=== PATIENT | female | born 1940 | race Caucasian/White ===

== ENCOUNTER 2018-05-25 13:46 | Outpatient (CLI) | payer MEDICARE, BC ==
--- NOTE | 2018-05-26 07:34 | RAD ---
RIGHT KNEE THREE VIEWS: INDICATIONS: History of prepatellar bursitis. COMPARISON: None. FINDINGS: There is moderate osteoarthrosis of the right knee. There are superficial vascular calcifications ov erlying the posterolateral aspect of the right knee. Enthesopathic change is seen off the patella. No joint capsular distention is evident. IMPRESSION: Osteoarthrosis of the right knee. No acute fracture is demonstrated. No large prepatellar soft tiss ue prominence seen. POS: [facility]
== END 2018-05-25 13:47 | disposition home or self-care (01) ==
LOC: BURRAD 13:46
PROVIDERS: ATTEND Nurse Practitioner
DX: M70.41 Prepatellar bursitis, right knee (principal); M17.11 Unilateral primary osteoarthritis, right knee

== ENCOUNTER 2023-03-18 01:33 | Emergency (ER) | payer MEDICARE, OTHER ==
[2023-03-18] MEDS ORDERED: Acetaminophen 500 MG TAB ONE (01:59)
[2023-03-18 03:42] LABS: #Basophils 0.1 thou/uL (0.0-0.2); #Eosinphils 0.1 thou/uL (0.0-0.7); #Lymphocytes 1.2 thou/uL (1.20-3.40); #Monocytes 0.6 thou/uL (0.11-0.59); #Neutrophils 9.9 thou/uL (1.40-6.50); %Basophils 0.7 % (0.0-1.0); %Lymphocytes 9.9 % (21.0-51.0); %Monocytes 5.2 % (0.0-10.0); %Neutrophils 83.2 % (42.0-75.0); Hematocrit 43.6 % (36.0-47.0); Hemoglobin 14.4 g/dL (12.0-16.0); Mean Corpuscular HGB CONC 32.9 g/dL (32.0-36.0); Mean Corpuscular Hemoglobin 28.1 pg (27.0-31.0); Mean Corpuscular Volume 85.3 fl (78.0-98.0); Mean Platelet Volume 8.5 fL (7.4-10.4); Platelet Count 239 10x3/uL (130-400); RBC Distribution Width 12.2 % (11.5-14.5); Red Blood Cell (RBC) Count 5.12 mill/uL (4.20-5.40); White Blood Cell (WBC) Count 11.8 10x3/uL (4.8-10.8)
[2023-03-18 04:03] LABS: ALT (SGPT) 19 U/L (8-55); AST (SGOT) 14 U/L (5-34); Albumin 4.2 g/dL (3.4-4.8); Alkaline Phosphatase 92 U/L (40-110); Anion Gap 14 mmol/L (10-20); BUN (Urea Nitrogen) 20 mg/dL (9.8-20.1); Bilirubin, Total 0.8 mg/dL (0.2-1.2); CK (CPK) 93 U/L (29-168); Calc. Creatinine Clearance 0 mL/min (70-130); Calcium 9.3 mg/dL (7.8-10.44); Carbon Dioxide 25 mmol/L (23-31); Chloride 104 mmol/L (98-107); Estimated GFR 51; Globulin 3.6 g/dL (2.4-3.5); Glucose 166 mg/dL (83-110); Potassium 3.7 mmol/L (3.5-5.1); Protein, Total 7.8 g/dL (5.8-8.1); Sodium 139 mmol/L (136-145)
[2023-03-18 04:24] LABS: Bilirubin Negative (Negative); Blood, Urine Trace (Negative); Clarity Cloudy (Clear); Glucose, Urine (Dipstick) Negative (Negative); Ketone, Urine 15 mg/dL (Negative); Leukocyte Large (Negative); Nitrite Positive (Negative); Protein, Urine (Dipstick) Negative (Neg-Trace); Specific Gravity, Urine 1.025 (1.005-1.030); Urobilinogen 0.2 mg/dL (Less than 2); pH, Urine 5.5 (5.0-9.0)
[2023-03-18 04:29] LABS: CAUTI Indications for Culture Pelvic or flank pain; RBC/HPF 0-3 HPF (0-3); Renal Epithelial 0-3 HPF (None Seen); WBC/HPF 21-50 HPF (0-3)
[2023-03-18 04:30] LABS: Bacteria/HPF 3+ HPF (None Seen)
[2023-03-18 04:31] LABS: Urine Culture Reflex Yes Yes
[2023-03-18] MEDS ORDERED: Cephalexin 250 MG CAP ONE (04:35)
== END 2023-03-18 04:48 | disposition home or self-care (01) ==
LOC: BURERS 01:33
DX: S00.33XA Contusion of nose, initial encounter (principal); N39.0 Urinary tract infection, site not specified; W18.30XA Fall on same level, unspecified, initial encounter
CPT/HCPCS: 36415; 70160; 70450; 70486; 72125; 80053; 81001; 82550; 85025; 87077; 87086

== ENCOUNTER 2023-05-05 11:42 | Outpatient (CLI) | payer MEDICARE | END 2023-05-05 11:43 | disposition home or self-care (01) | LOC: BURRAD 11:42 | PROVIDERS: ATTEND Family Medicine | DX: R07.89 Other chest pain (principal) | CPT/HCPCS: 71120 ==

== ENCOUNTER 2025-02-16 03:09 | Emergency (ER) | payer MEDICARE ==
[2025-02-16] MEDS ORDERED: predniSONE 20 MG TAB ONE (04:08)
[2025-02-16] MEDS ORDERED: Azithromycin 250 MG TAB ONE (04:15)
[2025-02-16 04:38] LABS: Anion Gap 16 mmol/L (10-20); BUN (Urea Nitrogen) 16 mg/dL (9.8-20.1); Calc. Creatinine Clearance 0 mL/min (70-130); Calcium 9.3 mg/dL (7.8-10.44); Carbon Dioxide 23 mmol/L (23-31); Chloride 103 mmol/L (98-107); Glucose 152 mg/dL (83-110); Potassium 4.4 mmol/L (3.5-5.1); Sodium 138 mmol/L (136-145)
[2025-02-16 04:41] LABS: Hematocrit 41.7 % (36.0-47.0); Hemoglobin 13.4 g/dL (12.0-16.0); MDiff Complete? YES; Mean Corpuscular Hemoglobin 28.2 pg (27.0-31.0); Mean Corpuscular Volume 87.6 fl (78.0-98.0); Platelet Adequacy Comment Appears Adequate; Platelet Count 190 10x3/uL (130-400); Red Blood Cell (RBC) Count 4.76 mill/uL (4.20-5.40); White Blood Cell (WBC) Count 6.8 10x3/uL (4.8-10.8)
== END 2025-02-16 05:00 | disposition home or self-care (01) ==
LOC: BURERS 03:09
DX: J44.0 Chronic obstructive pulmonary disease with (acute) lower respiratory infection (principal); J18.9 Pneumonia, unspecified organism; J44.1 Chronic obstructive pulmonary disease with (acute) exacerbation; E11.9 Type 2 diabetes mellitus without complications; E78.5 Hyperlipidemia, unspecified; Z79.899 Other long term (current) drug therapy; Z79.84 Long term (current) use of oral hypoglycemic drugs; Z79.51 Long term (current) use of inhaled steroids
CPT/HCPCS: 36415; 71045; 80048; 83880; 85025; 87428; 93005; J7512